=== PATIENT | male | born 1960 | race Caucasian/White ===

== ENCOUNTER 2017-09-29 15:39 | Observation (INO) | payer OTHER ==
[~2017-09-29] VITALS: Ht 170.2 cm; Wt 88.5 kg
[2017-09-29 16:38] LABS: Albumin 3.7 g/dL (3.4-5.0); Calcium 9.6 mg/dL (8.5-10.1)
[2017-09-29 16:40] LABS: Basophils # (auto) 0.1 uL; Bilirubin, Total 0.5 mg/dL (0.2-1.0); Eosinophils # (auto) 0.1 uL; Monocytes # (auto) 0.7 uL; Total Protein 7.9 g/dL (6.4-8.2)
[2017-09-29 16:42] LABS: Basophils % (auto) 0.7 % (0.0-2.0); Eosinophils % (auto) 1.5 % (0.0-7.0); Hematocrit 43.5 % (41.0-53.0); Lymphocytes # (auto) 2.3 uL; Lymphocytes % (auto) 23.3 % (10.0-50.0); Mean Corpuscular Hemoglobin 34.6 pg (28.0-32.0); Mean Corpuscular Hgb Conc. 34.5 g/dL (32.0-36.0); Mean Corpuscular Volume 100.5 fL (80.0-100.0); Monocytes % (auto) 7.3 % (0.0-12.0); Neutrophils # (auto) 6.5 uL; Neutrophils % (auto) 67.2 % (37.0-80.0); Nucleated Red Blood Cells % 0.2 %; Platelet Count (auto) 236 10^3/uL (140-450); Red Blood Cells 4.33 10^6/uL (4.5-5.90); Red Cell Distribution Width 13.5 % (11.8-14.3); White Blood Cell 9.7 10^3/uL (4.4-10.8)
[2017-09-29 17:08] LABS: Blood Alcohol < 3.0 mg/dL (0-5); Magnesium 1.8 mg/dL (1.6-2.6)
[2017-09-29] MEDS ORDERED: TETANUS-DIPTH-ACEL PERTUSSIS 0.5ML SYRG IM ONE (17:15)
[2017-09-29 18:08] LABS: INR 0.93 (0.9-1.15); Partial Thromboplastin Time 24.9 sec (22.64-33.71); Prothrombin Time 10.1 sec (9.37-12.3)
[2017-09-29] MEDS ORDERED: NICOTINE 21MG/24 HR TOPICAL PATCH TD ONE (18:15)
[2017-09-29 19:42] VITALS: BP 136/72
== END 2017-09-29 20:01 | disposition short-term general hospital (02) | DRG 64 ==
LOC: ER 15:43 → OVERFLOW 16:52 → ER 20:01
PROVIDERS: ADMIT Family Medicine; ATTEND Family Medicine
DX: I62.00 Nontraumatic subdural hemorrhage, unspecified (principal); G93.6 Cerebral edema; F10.20 Alcohol dependence, uncomplicated; I10 Essential (primary) hypertension; I73.9 Peripheral vascular disease, unspecified; W19.XXXA Unspecified fall, initial encounter; Y93.01 Activity, walking, marching and hiking; Y92.488 Other paved roadways as the place of occurrence of the external cause; Y99.8 Other external cause status; Z82.49 Family history of ischemic heart disease and other diseases of the circulatory system; Z87.891 Personal history of nicotine dependence; Z23 Encounter for immunization
CPT/HCPCS: 36415; 70450; 80053; 80320; 82962; 83735; 85025; 85610; 85730; 90471; 90715; 93005; 99291; G0378

== ENCOUNTER 2018-05-07 05:47 | Emergency (ER) | payer OTHER ==
[~2018-05-07] VITALS: Ht 170.2 cm; Wt 81.6 kg
[2018-05-07 06:14] VITALS: BP 139/88
== END 2018-05-07 06:58 | disposition home or self-care (01) ==
LOC: ER 05:49
DX: S83.8X1A Sprain of other specified parts of right knee, initial encounter (principal); E78.5 Hyperlipidemia, unspecified; I10 Essential (primary) hypertension; I25.2 Old myocardial infarction; Z87.891 Personal history of nicotine dependence; X50.1XXA Overexertion from prolonged static or awkward postures, initial encounter; Y93.53 Activity, golf; Y92.89 Other specified places as the place of occurrence of the external cause; Y99.8 Other external cause status
CPT/HCPCS: 73562

== ENCOUNTER 2025-08-08 17:44 | Inpatient (IN) | payer MEDICARE, OTHER ==
[~2025-08-08] VITALS: Ht 167.6 cm; Wt 82.2 kg
[2025-08-08 18:35] LABS: Base Excess -5.9 mmol/L (-2.0-3.0)
[2025-08-08 18:48] LABS: Hematocrit 51.9 % (41.0-53.0); Hemoglobin 17.5 g/dL (13.5-17.5); Mean Corpuscular Hemoglobin 31.6 pg (28.0-32.0); Mean Corpuscular Volume 94.0 fL (80.0-100.0); Nucleated Red Blood Cells % 0.1 %
[2025-08-08 19:06] LABS: Alanine Aminotransferase 18 U/L (7-40); Albumin 4.5 g/dL (3.2-4.8); Anion Gap 17 (5-15); BUN/Creatinine Ratio 33.5 (10.0-20.0); Bilirubin, Total 0.7 mg/dL (0.2-1.0); Calcium 9.9 mg/dL (8.7-10.4); Total Protein 7.3 g/dL (5.7-8.2)
[2025-08-08 19:10] LABS: Alkaline Phosphatase 138 U/L (46-116); Blood Urea Nitrogen 79 mg/dL (9-23); Carbon Dioxide 19 mmol/L (20-31); Chloride 96 mmol/L (98-107); Magnesium 2.9 mg/dL (1.6-2.6); Potassium 5.2 mmol/L (3.5-5.1); Sodium 132 mmol/L (136-145)
[2025-08-08 19:11] LABS: Glucose 650 mg/dL (74-106)
[2025-08-08] MEDS ORDERED: DEXTROSE (50%) 50ML SYRG IV PRN ×2 (19:30→23:30)
--- NOTE | 2025-08-08 19:55 | ED.PDOC ---
History of present illness HPI Comments HPI: 65 year old male presents to the ED with a chief complaint of hyperglycemia onset today. Patient went to urgent care this morning due to experiencing blurred vision, increased thirst, dry mouth, weakness, for the past 4 days. Blood glucose was checked at urgent care was over 700. He was given IV insulin, 2 NS bolus, blood glucose did not improve. Patient has a past medical history of hypertension and hyperlipidemia, has not taken medication for past few years. Prior to today, he was not aware he had diabetes. Denies fever, chills, headache, nausea, vomiting, diarrhea, chest pain, shortness of breath, dysuria, hematuria. No other symptoms or modifying factors present at this time. Initial Vitals BP: 118/72 HR: 110 RR: 16 O2 Sat: 96% Temp: 98.4 F Past Medical history: HTN, HLD, CA, Past Surgical history: Cardiac stent Medications: Denies Social History: Denies smoking, ETOH, and drug use. Allergies: italo Wilson: Blurry vision, generalized weakness, dry mouth, HPI: Poor Historian. REVIEW OF SYSTEMS: CONSTITUTIONAL: Denies acute: fever, diaphoresis, chills, HEAD: Denies acute: headache, photophobia Eyes: Denies acute: Double vision, vision loss, eye pain, eye discharge. EARS: Denies acute: tinnitus, hearing loss, ear discharge, ear pain, THROAT: Denies acute: sore throat, swelling, difficulty swallowing , pain with swallowing, change in voice. NECK: Denies acute: neck pain, neck swelling, stiff neck. HEART: Denies acute : chest pain, palpitations, LUNGS: Denies acute: SOB, wheezing, cough, hemoptysis ABDOMEN: Denies acute: abdominal pain, Nausea, Vomiting, diarrhea, melena , hematemesis, hematochezia SKIN: Denies acute: rash, redness, lesions, itchiness. EXTREMITIES: Denies acute: calf pain, numbness, tingling, weakness, denies pain in extremity. Denies acute: Low back pain. Neuro: Denies acute: focal neurological deficit, motor or sensory focal neurological deficit, tremors, seizure like activity, confusion, dizziness, change in mental status, loss of bowel or bladder function, cauda equina like symptoms. : Denies acute: dysuria, hematuria, flank pain, increase in urinary frequency. PSYCH: Denies acute: hallucination, suicidal ideation, homicidal ideation. PHYSICAL EXAM: General: ----mild----acute distress, awake and alert. Head: normocephalic, atraumatic. No raccoon's eyes, no rajput sign. Neck: supple, trachea is midline, no swelling. Throat: Normal phonation. Dry oral mucosa Eyes:, no erythema, no purulent discharge, no proptosis, no icterus. Heart: regular rate, regular rhythm, no significant murmur appreciated. Lungs: no apparent respiratory distress, Able to speak in full sentences. No wheezing, no rhonchi, no crackles. No stridors Clear to auscultation bilaterally. Abdomen: non tender to palpation, non distended, soft, no guarding, no rebound, + bowel sounds. Neuro: Awake, Alert, oriented to name, self, situation, follows commands GCS=15. Speech is normal. Skin: no petechia, no purpura, no cyanosis, non-pale, not jaundice. Lower extremities: --no - Pitting edema no deformity, no focal swelling, no calf TTP. Makes eye contact. moves all four extremities. Face: no apparent facial droop. ED COURSE: DISCLAIMER: This medical document was created using an electronic medical record system with voice recognition software and computerized dictation system. Although this document has been carefully reviewed, there might still be some phonetic and typographical errors. Occasional wrong-word or "sound-alike" substitutions may have occurred due to the inherent limitations of voice recognition software. These areas are purely typographical due to imperfections of the software programs and do not reflect any compromise in the patient's medical care. Please read the chart carefully and recognize, using context, where these substitutions have occurred. Chief Complaint: Hyperglycemia Time Seen by MD: 19:40 Primary Care Provider: Iram SOUZA History of present illness: Medications, Allergies Allergies: Coded Allergies: NO KNOWN ALLERGIES (Unverified , 09/29/17) Home Meds Active Scripts Lancets (Freestyle Lancets) Lancets Mis, EA XX ACHS, #120 Prov:REJI MEDINA MD 08/10/25 [facility] [place]. Devices (Blood Pressure Monitor) Monitor Kit, EA XX DAILY, #1 Prov:REJI MEDINA MD 08/10/25 Blood Glucose Monitoring Suppl (Blood Glucose Monitoring W/Device) 1 Kit Kit, KIT XX ACHS, #1 Prov:REJI MEDINA MD 08/10/25 Losartan Potassium (Losartan Potassium) 25 Mg Tab, 25 MG PO BID, #90 TAB Prov:REJI MEDINA MD 08/10/25 Insulin Regular (Human) (Novolin R Flexpen) 100 Unit/Ml Inj, 10 UNIT IJ AC, #10 INJ Prov:REJI MEDINA MD 08/10/25 Insulin Glargine (Lantus Solostar) 100 Unit/Ml Inj, 20 UNIT SC QAM, #10 INJ Prov:REJI MEDINA MD 08/10/25 Information Source: Patient, Emergency Med Personnel Mode of Arrival: Ambulatory Timing: Days Duration: Since onset Prehospital treatment: IVF Past Medical History PAST MEDICAL HISTORY: High Lipids, HTN, CA, PAD Surgical History: PTCA Family History Family History: No family hx of HTN Social History Smoker: Quit Greater Than 1 Year, Cigarettes Alcohol: Heavy Drugs: Denies Drug Use Lives In: Home Was a procedure done? Was a procedure done?: No Differential Diagnosis (DM) Differential Diagnosis: Appendicitis, Bowel Obstruction, Cholecystitis, Dehydration, Diabetic Coma, DKA, Electrolyte Abnormality, Encephalopathy, Gastritis, Gastroenteritis, Hepatitis, Hyperglycemia, Hyperosmolar State, Hypoglycemia, Pancreatitis, Pyelonephritis, UTI X-Ray, Labs, Meds, VS Vital Signs Date Time Temp Pulse Resp B/P (MAP) Pulse Ox O2 Delivery O2 Flow Rate FiO2 08/08/25 20:00 93 08/08/25 19:30 98.1 90 20 151/90 (110) 96 98.1 08/08/25 17:45 98.4 110 16 118/72 96 98.4 Lab Test 08/08/25 20:31 08/08/25 18:27 08/08/25 18:25 08/08/25 17:53 Range/Units POC Glucose > 600 *H > 600 *H 70-106 mg/dl Blood Gas Specimen Type Arterial Blood Gas Sample Site Left radial Blood Gas Patient Temperature 37.0 Arterial Blood Date Drawn [id number] Arterial Blood pH 7.355 7.350-7.450 Arterial Blood Partial Pressure CO2 33.7 L 35.0-48.0 mmHg Arterial Blood Partial Pressure O2 79.1 L 83.0-108.0 mmHg Arterial Blood HCO3 18.4 L 21.0-28.0 mmol/L Arterial Blood Oxygen Saturation 95.4 94.0-98.0 % Arterial Blood Base Excess -5.9 L -2.0-3.0 mmol/L Arterial Blood Oxyhemoglobin 93.8 L 94.0-98.0 % Arterial Blood Carboxyhemoglobin 1.0 0.5-1.5 % Arterial Blood Methemoglobin 0.7 0.0-1.5 % Arterial Blood Deoxyhemoglobin 4.5 0.0-5.0 % Timoteo Test Yes Blood Gas Total Hemoglobin 17.90 H 13.5-17.5 g/dL Blood Gas Modality Room air FiO2 % 21.0 White Blood Count 10.3 4.4-10.8 10^3/uL Red Blood Count 5.52 4.5-5.90 10^6/uL Hemoglobin 17.5 13.5-17.5 g/dL Hematocrit 51.9 41.0-53.0 % Mean Corpuscular Volume 94.0 80.0-100.0 fL Mean Corpuscular Hemoglobin 31.6 28.0-32.0 pg Mean Corpuscular Hemoglobin Concent 33.6 32.0-36.0 g/dL Red Cell Distribution Width 13.5 11.8-14.3 % Platelet Count 164 140-450 10^3/uL Mean Platelet Volume 11.6 H 6.9-10.8 fL Neutrophils (%) (Auto) 70.9 37.0-80.0 % Lymphocytes (%) (Auto) 20.6 10.0-50.0 % Monocytes (%) (Auto) 7.0 0.0-12.0 % Eosinophils (%) (Auto) 0.5 0.0-7.0 % Basophils (%) (Auto) 1.0 0.0-2.0 % Neutrophils # (Auto) 7.3 1.6-8.6 10 ^3/uL Lymphocytes # (Auto) 2.1 0.4-5.4 10 ^3/uL Monocytes # (Auto) 0.7 0-1.3 10 ^3/uL Eosinophils # (Auto) 0 0-0.8 10 ^3/uL Basophils # (Auto) 0.1 0-0.2 10 ^3/uL Nucleated Red Blood Cells 0.1 % Platelet Estimate Adequate Clumped Platelets None Sodium Level 132 L 136-145 mmol/L Potassium Level 5.2 H 3.5-5.1 mmol/L Chloride Level 96 L 98-107 mmol/L Carbon Dioxide Level 19 L 20-31 mmol/L Anion Gap 17 H 5-15 Blood Urea Nitrogen 79 H 9-23 mg/dL Creatinine 2.36 H 0.700-1.30 mg/dL Glomerular Filtration Rate Calc 30 >90 mL/min BUN/Creatinine Ratio 33.5 H 10.0-20.0 Serum Glucose 650 *H 74-106 mg/dL Hemoglobin A1c > 14.0 H <5.7 % A1C Serum Osmolality 351 H 278-298 mOsm/kg Lactic Acid Level 1.9 0.4-2.0 mmol/L Calcium Level 9.9 8.7-10.4 mg/dL Phosphorus Level 5.0 2.4-5.1 mg/dL Magnesium Level 2.9 H 1.6-2.6 mg/dL Total Bilirubin 0.7 0.2-1.0 mg/dL Aspartate Amino Transferase (AST) 14 13-40 U/L Alanine Aminotransferase (ALT) 18 7-40 U/L Alkaline Phosphatase 138 H 46-116 U/L Troponin I High Sensitivity 32 </=54 ng/L Total Protein 7.3 5.7-8.2 g/dL Albumin 4.5 3.2-4.8 g/dL Beta-Hydroxybutyric Acid 4.020 H < 0.4 mmol/L Test 08/08/25 17:52 Range/Units POC Glucose > 600 *H 70-106 mg/dl Time of 1ST Reevaluation: 20:10 Reevaluation 1ST: Unchanged Patient Education/Counseling: Diagnosis, Treatment Family Education/Counseling: No Family Present Comments MDM: patient presented with the above HPI.----hyperglycemia--workup was initiated. patient was found with the above mentioned diagnosis. the following medications were ordered: please refer to order lists of meds and tests obtained by myself Dr. Gregory. Patient ED course and VS have been stabilized. Patient has been reassessed in the ED and remained in a stable condition. RADIOLOGY: I have reviewed all the radiological reports ordered by myself that were available at the time of disposition. EKG: I have reviewed the initial EKG and interpreted it in the absence of cardiology formal read. Pertinent incidental findings were discussed with the patient and/or family. Patient/family voices understanding and is agreeable with plan. Patient has been observed in the ED adequate length of time to insure improvement/stability. Escalation of care considered: Consideration of escalation to observation or admission DKA protocol was initiated. Patient was ADMITTED to the medicine team for further evaluation and treatment of their presentation. All the reports of any imaging studies that were ordered by myself were reviewed by myself. Departure 1 Departure Time of Disposition: 19:44 Impression: Primary Impression: DKA (diabetic ketoacidosis) Disposition: ADMITTED INPATIENT Admit to: ICU Condition: Critical e-Prescriptions Lancets (Freestyle Lancets) Lancets Mis EA XX ACHS, #120 Prov: REJI MEDINA MD 08/10/25 [facility] [place]. Devices (Blood Pressure Monitor) Monitor Kit EA XX DAILY, #1 Prov: REJI MEDINA MD 08/10/25 Blood Glucose Monitoring Suppl (Blood Glucose Monitoring W/Device) 1 Kit Kit KIT XX ACHS, #1 Prov: REJI MEDINA MD 08/10/25 Losartan Potassium (Losartan Potassium) 25 Mg Tab 25 MG PO BID, #90 TAB Prov: REJI MEDINA MD 08/10/25 Insulin Regular (Human) (Novolin R Flexpen) 100 Unit/Ml Inj 10 UNIT IJ AC, #10 INJ Prov: REJI MEDINA MD 08/10/25 Insulin Glargine (Lantus Solostar) 100 Unit/Ml Inj 20 UNIT SC QAM, #10 INJ Prov: REJI MEDINA MD 08/10/25 Discharged With: Self Critical Care Note Critical Care Time?: Yes (45 min-critical care time only) Critical care comment: Due to a high probability of clinically significant, life threatening deterioration, the patient required my highest level of preparedness to intervene emergently and I personally spent this critical care time directly and personally managing the patient. This critical care time included obtaining a history; examining the patient; pulse oximetry; ordering and review of studies; arranging urgent treatment with development of a management plan; evaluation of patient's response to treatment; frequent reassessment; and, discussions with other providers. This critical care time was performed to assess and manage the high probability of imminent, life-threatening deterioration that could result in multi-organ failure. It was exclusive of separately billable procedures and treating other patients and teaching time. Please see my other sections and the rest of the note for further information on patient assessment and treatment. I personally scribed for LEVON GREGORY DO ([email or web address]) on 08/08/25 at 19:55. Electronically submitted by [place] Ngo ([email or web address]). LEVON GREGORY DO Aug 08, 2025 19:55
[2025-08-08] MEDS: ACCU-CHEK COMFORT CURVE STRIP VI SCH (20:32)
[2025-08-08] MEDS: INSULIN DRIP 100 UNIT/100ML 100 ML IV SCH ×2 (20:33→23:30)
[2025-08-08] MEDS: SODIUM CHLORIDE 0.9% 1,000 ML IV SCH ×2 (20:38→22:45)
[2025-08-08] MEDS ORDERED: ACETAMINOPHEN 325 MG TAB PO PRN (21:00)
[2025-08-08] MEDS ORDERED: MELATONIN 5 MG TAB PO PRN (21:00)
[2025-08-08] MEDS ORDERED: D5W/SOD CHLO 0.9% 1,000 ML IV SCH (21:00)
--- NOTE | 2025-08-08 21:48 | DVHHP2 ---
Admitting Diagnosis: DKA, ALEJANDRA History of Present Illness History Source: Patient Exam Limitations: No limitations HPI Mr. Jasen Killian is a 65 year old male with a history of Hypertension, Hyperlipidemia , [place] with cardiac stent who presents with a chief complaint of hyperglycemia onset today. Patient went to urgent care this morning due to experiencing blurred vision, increased thirst, dry mouth, weakness, for the past 4 days. Blood glucose was checked at urgent care was over 700. He was given IV insulin, 2 NS bolus, blood glucose did not improve. Prior to today, he was not aware he had diabetes. Denies fever, chills, headache, nausea, vomiting, diarrhea, chest pain, shortness of breath, dysuria, hematuria. No other symptoms or modifying factors present at this time. Past Medical History Cardiac: HTN, [place] (with cardiac stent), Hyperlipidemia Pulmonary: No pertinent Hx Central Nervous System: No pertinent Hx GI: No pertinent Hx Hemotology/Oncology: No pertinent Hx Hepatobiliary: No pertinent Hx Psychiatric: No pertinent Hx Musculoskeletal: No pertinent Hx Rheumotologic: No pertinent Hx Infectious Disease: No peritnent Hx ENT: No pertinent Hx Renal/: No pertinent Hx Endocrine: No pertinent Hx Dermatology: No pertinent Hx Smoker: 1 pack per day Alocohol: None (quit x 2 years ago) Drugs: None Lives with: With family Domestic Violence: Neg Review of Systems Constitutional: No symptom reported Ears, Nose, & Throat: No symptom reported Eyes: No symptom reported Pulmonary/Respiratory: No symptom reported Cardiovascular: No symptom reported Gastrointestinal: No symptom reported Genitourinary: No symptom reported Musculoskeletal: No symptom reported Skin: No symptom reported Psychiatric: No symptom reported Endocrine: No symptom reported Hemotologic/Lymphatic: No symptom reported H&P Exam Vital Signs Vital Signs Date Time Temp Pulse Resp B/P (MAP) Pulse Ox O2 Delivery O2 Flow Rate FiO2 08/08/25 20:00 93 08/08/25 17:45 98.4 16 118/72 96 98.4 General Appeara: Well developed, Well nourished Head Exam: Normal inspection Neck Exam: Normal inspection, Non-tender, Normal alignment Eye Exam: bilateral eye Normal inspection, bilateral eye PERRL, bilateral eye EOMI Ear Exam: bilateral ear Auricle normal Nasal Exam: Normal inspection Mouth: Normal Inspection Pulmonary/Respiratory: Normal inspection, Normal breath sounds, Chest non- tender, Lungs clear Cardiovascular/Chest: Normal inspection, Regular rate, Normal Rhythm Peripheral Pulses: 2+ dorsalis pedis (R), 2+ dorsalis pedis (L), 2+ Radial (R), 2+ Radial (L) Abdominal Exam: Normal bowel sounds, Soft VISUAL MERCHANDISE MANAGER Exam: Normal hearing, Normal speech, PERRL Neuro/Mental St: Alert, Oriented Appearance: Appropriate insight, Disheveled Eye contact/ Speech: Cooperative, Good eye contact Thoughts/Psych: Normal thought pattern Skin Exam: Normal inspection, Normal color, Warm/dry SEPSIS Sepsis Screen Date sepsis recognized/suspect: Aug 08, 2025 Time Sepsis recognized/suspect: 1750 Recent Procedure: No On Antibiotic Therapy: No Respiratory Rate >20: No Heart Rate >90: Yes Temp<36 C (96.8 F) or >38.3 C: No SBP <90 or MAP <65 mmHG: No New Acute Mental Status Change: No Is the patient on CPAP, BIPAP,: No Physician Orders Rail Car Repairer (08/08/25 ) Urinalysis (08/08/25 18:01) Abg W/ Co-Ox (08/08/25 18:01) Insulin Drip Protocol (08/08/25 ) Sodium Chloride 0.9% (08/08/25 19:30) Dextrose 50% Syringe (08/08/25 19:30) Glucose Blood (Accu-Chek Comfort Curve T (08/08/25 19:30) Basic Metabolic Panel (08/09/25 01:18) Basic Metabolic Panel (08/09/25 07:18) Basic Metabolic Panel (08/09/25 13:18) Neurological Assessment (08/08/25 19:18) Vs/Hemodynamics .PER UNIT PROTOCOL (08/08/25 19:18) Admit (08/08/25 20:57) Accucheck (08/08/25 21:00) Accucheck (08/08/25 22:00) Accucheck (08/08/25 23:00) Accucheck (08/09/25 00:00) Accucheck (08/09/25 01:00) Accucheck (08/09/25 02:00) Accucheck (08/09/25 03:00) Accucheck (08/09/25 04:00) Accucheck (08/09/25 05:00) Accucheck (08/09/25 06:00) Accucheck (08/09/25 07:00) Accucheck (08/09/25 08:00) Accucheck (08/09/25 09:00) Accucheck (08/09/25 10:00) Accucheck (08/09/25 11:00) Accucheck (08/09/25 12:00) Accucheck (08/09/25 13:00) Accucheck (08/09/25 14:00) Accucheck (08/09/25 15:00) Accucheck (08/09/25 16:00) Accucheck (08/09/25 17:00) Accucheck (08/09/25 18:00) Accucheck (08/09/25 19:00) Accucheck (08/09/25 20:00) Accucheck (08/09/25 21:00) Accucheck (08/09/25 22:00) Accucheck (08/09/25 23:00) Accucheck (08/10/25 00:00) Accucheck (08/10/25 01:00) Accucheck (08/10/25 02:00) Consistent Carb(Ccho)Diabetes (08/09/25 Breakfast) Full Code (08/08/25 20:57) Basic Metabolic Panel (08/08/25 22:00) Basic Metabolic Panel (08/09/25 02:00) Basic Metabolic Panel (08/09/25 06:00) Basic Metabolic Panel (08/09/25 10:00) Basic Metabolic Panel (08/09/25 14:00) Basic Metabolic Panel (08/09/25 18:00) Basic Metabolic Panel (08/09/25 22:00) Basic Metabolic Panel (08/10/25 02:00) Basic Metabolic Panel (08/10/25 06:00) Basic Metabolic Panel (08/10/25 10:00) Magnesium (08/08/25 22:00) Magnesium (08/09/25 02:00) Magnesium (08/09/25 06:00) Magnesium (08/09/25 10:00) Magnesium (08/09/25 14:00) Magnesium (08/09/25 18:00) Magnesium (08/09/25 22:00) Magnesium (08/10/25 02:00) Magnesium (08/10/25 06:00) Magnesium (08/10/25 10:00) Phosphorus (08/08/25 22:00) Phosphorus (08/09/25 02:00) Phosphorus (08/09/25 06:00) Phosphorus (08/09/25 10:00) Phosphorus (08/09/25 14:00) Phosphorus (08/09/25 18:00) Phosphorus (08/09/25 22:00) Phosphorus (08/10/25 02:00) Phosphorus (08/10/25 06:00) Phosphorus (08/10/25 10:00) Stat Ekg For Chest Pain (08/08/25 20:57) Notify Of Changes From Base (08/08/25 20:57) Coating Mixer For 24 Hours (08/08/25 20:57) Emergency Dysrhythmia Protocol (08/08/25 20:57) Rhythm Strips Once Every Shift (08/08/25 20:57) Oxygen By Nasal Cannula (08/08/25 20:57) Sodium Chloride 0.9% (08/08/25 21:00) Acetaminophen Tablet (Tylenol Tablet) (08/08/25 21:00) Famotidine Tablet (Pepcid Tablet) (08/08/25 22:00) Melatonin (Melatonin) (08/08/25 21:00) Enoxaparin Sodium (Lovenox) (08/09/25 10:00) Insulin R (Human) (Insulin R) (08/09/25 07:00) *[facility] (08/08/25 21:27) Kidney (08/08/25:27) Vital Signs Date Time Temp Pulse Resp B/P (MAP) Pulse Ox O2 Delivery O2 Flow Rate FiO2 08/08/25 20:00 93 08/08/25 17:45 98.4 110 16 118/72 96 98.4 Laboratory Tests Test 08/08/25 18:25 Lactic Acid Level 1.9 mmol/L (0.4-2.0) White Blood Count 10.3 10^3/uL (4.4-10.8) Medications Medications Dose Ordered Sig/Melva Route Start Time Stop Time Status Last Admin Dose Admin Diagnostic Test (Pha) 1 strip Q90MIN 08/08/25 19:30 08/08/25 21:03 1 STRIP Insulin Human (Reg)/Sodium Chloride 100 ml @ 0.5 mls/hr Q24H IV 08/08/25 19:30 08/08/25 21:08 DC 08/08/25 20:33 6 MLS/HR Sodium Chloride 1,000 ml @ 500 mls/hr Q2H IV 08/08/25 19:30 08/08/25 23:29 08/08/25 20:38 500 MLS/HR Labs/Xrays Labs Test 08/08/25 20:31 08/08/25 18:27 08/08/25 18:25 Range/Units POC Glucose > 600 *H 70-106 mg/dl Blood Gas Specimen Type Arterial Blood Gas Sample Site Left radial Blood Gas Patient Temperature 37.0 Arterial Blood Date Drawn [id number] Arterial Blood pH 7.355 7.350-7.450 Arterial Blood Partial Pressure CO2 33.7 L 35.0-48.0 mmHg Arterial Blood Partial Pressure O2 79.1 L 83.0-108.0 mmHg Arterial Blood HCO3 18.4 L 21.0-28.0 mmol/L Arterial Blood Oxygen Saturation 95.4 94.0-98.0 % Arterial Blood Base Excess -5.9 L -2.0-3.0 mmol/L Arterial Blood Oxyhemoglobin 93.8 L 94.0-98.0 % Arterial Blood Carboxyhemoglobin 1.0 0.5-1.5 % Arterial Blood Methemoglobin 0.7 0.0-1.5 % Arterial Blood Deoxyhemoglobin 4.5 0.0-5.0 % Timoteo Test Yes Blood Gas Total Hemoglobin 17.90 H 13.5-17.5 g/dL Blood Gas Modality Room air FiO2 % 21.0 White Blood Count 10.3 4.4-10.8 10^3/uL Red Blood Count 5.52 4.5-5.90 10^6/uL Hemoglobin 17.5 13.5-17.5 g/dL Hematocrit 51.9 41.0-53.0 % Mean Corpuscular Volume 94.0 80.0-100.0 fL Mean Corpuscular Hemoglobin 31.6 28.0-32.0 pg Mean Corpuscular Hemoglobin Concent 33.6 32.0-36.0 g/dL Red Cell Distribution Width 13.5 11.8-14.3 % Platelet Count 164 140-450 10^3/uL Mean Platelet Volume 11.6 H 6.9-10.8 fL Neutrophils (%) (Auto) 70.9 37.0-80.0 % Lymphocytes (%) (Auto) 20.6 10.0-50.0 % Monocytes (%) (Auto) 7.0 0.0-12.0 % Eosinophils (%) (Auto) 0.5 0.0-7.0 % Basophils (%) (Auto) 1.0 0.0-2.0 % Neutrophils # (Auto) 7.3 1.6-8.6 10 ^3/uL Lymphocytes # (Auto) 2.1 0.4-5.4 10 ^3/uL Monocytes # (Auto) 0.7 0-1.3 10 ^3/uL Eosinophils # (Auto) 0 0-0.8 10 ^3/uL Basophils # (Auto) 0.1 0-0.2 10 ^3/uL Nucleated Red Blood Cells 0.1 % Platelet Estimate Adequate Clumped Platelets None Sodium Level 132 L 136-145 mmol/L Potassium Level 5.2 H 3.5-5.1 mmol/L Chloride Level 96 L 98-107 mmol/L Carbon Dioxide Level 19 L 20-31 mmol/L Anion Gap 17 H 5-15 Blood Urea Nitrogen 79 H 9-23 mg/dL Creatinine 2.36 H 0.700-1.30 mg/dL Glomerular Filtration Rate Calc 30 >90 mL/min BUN/Creatinine Ratio 33.5 H 10.0-20.0 Serum Glucose 650 *H 74-106 mg/dL Serum Osmolality 351 H 278-298 mOsm/kg Lactic Acid Level 1.9 0.4-2.0 mmol/L Calcium Level 9.9 8.7-10.4 mg/dL Phosphorus Level 5.0 2.4-5.1 mg/dL Magnesium Level 2.9 H 1.6-2.6 mg/dL Total Bilirubin 0.7 0.2-1.0 mg/dL Aspartate Amino Transferase (AST) 14 13-40 U/L Alanine Aminotransferase (ALT) 18 7-40 U/L Alkaline Phosphatase 138 H 46-116 U/L Troponin I High Sensitivity 32 </=54 ng/L Total Protein 7.3 5.7-8.2 g/dL Albumin 4.5 3.2-4.8 g/dL Beta-Hydroxybutyric Acid 4.020 H < 0.4 mmol/L Assessment/Plan Problem List: (1) DKA (diabetic ketoacidosis) (2) ALEJANDRA (acute kidney injury) Plan This is a 65 yo male with known history of Hypertension, hyperlipidemia, [place] with cardiac stent who presents to hospital sent from Urgent Care with hyperglycemia. Patient found to have 1. DKA 2. ALEJANDRA 3. Hypertension 4. Hyperlipidemia 5. [place] with cardiac stent Plan Admit to ICU Nephrology consultation, Renal Ultrasound Insulin drip per DKA protocol IV fluids per protocol BMP, Phos, MG q 4hours Monitor electrolytes replenish as needed Dietary consultation /diabetes education Smoking cessation education Discussed all above with patient who verbalizes agreement and understanding of care plan. All questions were answered. Discussed with supervising MD. Plan discussed with: Patient, Other Code Visit Code Visit Total Time (mins): 45 Additional Comments Additional Comments Additional Comments Patient's chart is reviewed and discussed with the nurse practitioner. Patient is seen evaluated and admitted by PROJECT MANAGEMENT ANALYST cook boat. I agree with the her evaluation, documentation, assessment and care plan as outlined. Patient is seen and evaluated by me in person this afternoon and discussed care plan with the patient and nurse at bedside. RANDY RODRIGUEZ Aug 08, 2025 21:48 REJI MEDINA MD Aug 09, 2025 13:50
[2025-08-08 21:50] VITALS: PULSE 78; RESP 18; O2SAT 94
[2025-08-08 22:34] LABS: Chloride 99 mmol/L (98-107); Potassium 4.5 mmol/L (3.5-5.1)
[2025-08-08 22:35] LABS: Anion Gap 11 (5-15); Calcium 9.1 mg/dL (8.7-10.4); Carbon Dioxide 25 mmol/L (20-31)
[2025-08-08 22:40] LABS: BUN/Creatinine Ratio 33.2 (10.0-20.0)
[2025-08-08 22:41] LABS: Magnesium 2.5 mg/dL (1.6-2.6)
[2025-08-08 22:42] LABS: Sodium 135 mmol/L (136-145)
[2025-08-08 22:43] LABS: Blood Urea Nitrogen 62 mg/dL (9-23)
[2025-08-08 22:44] LABS: Glucose 559 mg/dL (74-106)
[2025-08-08] MEDS: FAMOTIDINE 20 MG TAB PO SCH (22:45)
[2025-08-08] MEDS: InsuLIN REG 1unit/0.01ml Soln (100units/ml) ONE (23:07)
[2025-08-08] MEDS ORDERED: INSULIN DRIP 100 UNIT/100ML 100 ML IV SCH ×2 (23:30)
[2025-08-08] MEDS ORDERED: SODIUM CHLORIDE 0.9% 1,000 ML IV SCH (23:30)
[2025-08-09] VITALS (12 sets, daily range): BP systolic 100–161; BP diastolic 39–87; PULSE 67–90; RESP 14–18; TEMP 97.7–98.6; O2SAT 94–97
[2025-08-09] MEDS ORDERED: ACCU-CHEK COMFORT CURVE STRIP VI SCH
[2025-08-09 00:18] LABS: Urine Budding Yeast OCCASIONAL /hpf (None Seen); Urine Protein, UAD Negative (Negative)
--- NOTE | 2025-08-09 01:15 | DVH ---
INDICATION: juani TECHNIQUE: Multiple real-time sonographic images of the kidneys and bladder were obtained. COMPARISON: None FINDINGS: The right kidney measures 11.2 cm in length, which is normal in size. There is normal echogenicity of the right kidney. No hydronephrosis. The left kidney measures 10.1 cm in length, which is normal in size. There is increased echogenicity. There is no hydronephrosis. 1.0 cm left renal cyst. No intraluminal mass is seen in the bladder. The urinary bladder is distended. Prior to voiding the bladder volume measures 306.2 cc. IMPRESSION: 1. Increased left renal echogenicity may reflect medical renal disease in the appropriate clinical setting. 2. Distended urinary bladder.
[2025-08-09] MEDS ORDERED: SODIUM CHLORIDE 0.9% 1,000 ML IV SCH (01:30)
[2025-08-09 02:18] LABS: Chloride 105 mmol/L (98-107); Potassium 4.1 mmol/L (3.5-5.1); Sodium 139 mmol/L (136-145)
[2025-08-09 02:19] LABS: Anion Gap 9 (5-15); Calcium 9.1 mg/dL (8.7-10.4); Carbon Dioxide 25 mmol/L (20-31)
[2025-08-09 02:24] LABS: BUN/Creatinine Ratio 35.8 (10.0-20.0)
[2025-08-09 02:25] LABS: Magnesium 2.4 mg/dL (1.6-2.6)
[2025-08-09 03:02] LABS: Blood Urea Nitrogen 54 mg/dL (9-23); Glucose 269 mg/dL (74-106)
[2025-08-09 06:08] LABS: Anion Gap 8 (5-15); Carbon Dioxide 27 mmol/L (20-31); Potassium 4.0 mmol/L (3.5-5.1); Sodium 142 mmol/L (136-145)
[2025-08-09 06:09] LABS: Calcium 9.1 mg/dL (8.7-10.4)
[2025-08-09 06:13] LABS: Glucose 80 mg/dL (74-106)
[2025-08-09 06:14] LABS: BUN/Creatinine Ratio 30.7 (10.0-20.0); Magnesium 2.4 mg/dL (1.6-2.6)
[2025-08-09 06:20] LABS: Blood Urea Nitrogen 42 mg/dL (9-23); Chloride 107 mmol/L (98-107)
[2025-08-09] MEDS ORDERED: InsuLIN REG 1unit/0.01ml Soln (100units/ml) SC SCH ×2 (07:00→22:00)
[2025-08-09] MEDS ORDERED: DEXTROSE (50%) 50ML SYRG IV PRN ×2 (10:15→21:15)
[2025-08-09] MEDS: ENOXAPARIN SOD 40 MG/0.4 ML SYRINGE SC SCH (10:30)
--- NOTE | 2025-08-09 10:46 | DVHINCON2 ---
Date of service: Aug 09, 2025 Referring Physician Fannie Lewis, nurse practitioner Reason for Consultation Acute kidney injury History of Present Illness Patient is a 65-year-old male with past medical history significant for: HTN, HLD, and DC who has no primary care physician is admitted for generalized weakness increasing thirst and polyuria. On admission patient found to have diabetic ketoacidosis kidney injury Past Medical History Past Medical history: HTN, HLD, DC, Past Surgical History Past Surgical history: Cardiac stent Allergies: Coded Allergies: NO KNOWN ALLERGIES (Unverified , 09/29/17) Current Medications Current Medications Medications (Trade) Dose Ordered Sig/Melva Route PRN Reason Start Time Stop Time Status Last Admin Sodium Chloride 1,000 ml @ 500 mls/hr Q2H IV 08/08/25 19:30 08/08/25 23:29 DC 08/08/25 23:09 Sodium Chloride 1,000 ml @ 250 mls/hr Q4H IV 08/08/25 23:30 08/09/25 01:29 Cancel Sodium Chloride 1,000 ml @ 150 mls/hr Q6H40M IV 08/09/25 01:30 08/08/25 21:24 DC Insulin Human (Reg)/Sodium Chloride 100 ml @ 0.5 mls/hr Q24H IV 08/08/25 19:30 08/08/25 21:08 DC 08/08/25 20:33 Dextrose 50 ml UD PRN IV SEE CURRENT ALGORITHM or SCALE 08/08/25 19:30 Cancel Diagnostic Test (Pha) (Accu-Chek Comfort Curve T) 1 strip Q90MIN 08/08/25 19:30 08/09/25 10:59 DC 08/09/25 09:30 Sodium Chloride 1,000 ml @ 150 mls/hr Q6H40M IV 08/08/25 21:00 08/09/25 10:59 DC 08/09/25 03:40 Dextrose/Sodium Chloride 1,000 ml @ 150 mls/hr Q6H40M IV 08/08/25 21:00 08/08/25 21:36 DC Acetaminophen (Tylenol Tablet) 650 mg Q6HPRN PRN PO PAIN SCALE 1-3 OR TEMP>100.4 08/08/25 21:00 Famotidine (Pepcid Tablet) 20 mg DAILY PO 08/08/25 22:00 08/09/25 10:30 Melatonin (Melatonin) 5 mg ONCE@2200 PRN PO FOR INSOMNIA 08/08/25 21:00 Enoxaparin Sodium (Lovenox) 40 mg DAILY SC 08/09/25 10:00 08/09/25 10:30 Insulin Human Regular (InsuLIN R) AC SC 08/09/25 07:00 08/08/25 23:44 DC Insulin Human (Reg)/Sodium Chloride 100 ml @ 0.5 mls/hr Q24H IV 08/08/25 23:30 08/09/25 10:59 DC 08/09/25 03:11 Dextrose 50 ml UD PRN IV SEE CURRENT ALGORITHM or SCALE 08/08/25 23:30 UNV Diagnostic Test (Pha) (Accu-Chek Comfort Curve T) 1 strip Q90MIN 08/09/25 00:00 UNV Insulin Human (Reg)/Sodium Chloride 100 ml @ 0.5 mls/hr Q24H IV 08/08/25 23:30 UNV Insulin Human (Reg)/Sodium Chloride 100 ml @ 1 mls/hr Q24H IV 08/08/25 23:30 08/08/25 23:44 DC Diagnostic Test (Pha) (Accu-Chek Comfort Curve T) 1 strip ACHS 08/09/25 11:30 Insulin Human Regular (InsuLIN R) ACHS SC 08/09/25 11:30 Dextrose 50 ml UD PRN IV Blood Sugar LESS THAN 60 08/09/25 10:15 Review of Systems All 12 item review of systems reviewed with the patient nonsignificant except what is mentioned in the history of present illness H&P Exam Vital Signs/I&O Vital Sign Date Time Temp Pulse Resp B/P (MAP) Pulse Ox O2 Delivery O2 Flow Rate FiO2 08/09/25 10:30 88 08/09/25 10:30 18 94 Room Air* 0 21 08/09/25 10:00 147/78 (101) 08/09/25 08:00 98.5 98.5 Intake and Output 08/08/25 08/09/25 19:00 07:00 Intake Total 839 ml Balance 839 ml Intake IV Total 839 ml Physical Exam Patient is awake alert Lungs clear to auscultation bilaterally Cardiac exam regular rate and rhythm GI soft nontender normal Extremities no clubbing cyanosis or edema Neuro nonfocal Labs/Diagnostic Data Labs/Diagnostic Data Laboratory Tests Test 08/09/25 05:50 08/09/25 05:34 08/09/25 01:57 08/09/25 01:09 Range/Units Sodium Level 142 139 136-145 mmol/L Potassium Level 4.0 4.1 3.5-5.1 mmol/L Chloride Level 107 105 98-107 mmol/L Carbon Dioxide Level 27 25 20-31 mmol/L Anion Gap 8 9 5-15 Blood Urea Nitrogen 42 #H 54 H 9-23 mg/dL Creatinine 1.37 H 1.51 H 0.700-1.30 mg/dL Glomerular Filtration Rate Calc 57 51 >90 mL/min BUN/Creatinine Ratio 30.7 H 35.8 H 10.0-20.0 Serum Glucose 80 # 269 #H 74-106 mg/dL Calcium Level 9.1 9.1 8.7-10.4 mg/dL Phosphorus Level 2.8 2.3 L 2.4-5.1 mg/dL Magnesium Level 2.4 2.4 1.6-2.6 mg/dL POC Glucose 95 358 H 70-106 mg/dl Test 08/08/25 23:59 08/08/25 23:32 08/08/25 22:05 08/08/25 20:31 Range/Units Urine Color Light-yellow Yellow Urine Clarity Clear Clear Urine pH 5.0 5.0-9.0 Urine Specific [place] 1.026 1.001-1.035 Urine Protein Negative Negative Urine Ketones 1+ H Negative Urine Blood Negative Negative /uL Urine Nitrite Negative Negative Urine Bilirubin Negative Negative Urine Urobilinogen Normal Negative mg/dL Urine Leukocyte Esterase Negative Negative /uL Urine RBC 1 0 - 3 /hpf Urine Microscopic WBC < 1 0-3 /HPF Urine Squamous Epithelial Cells None seen <5 /hpf Urine Bacteria None seen None Seen /hpf Urine Mucus Few None Seen Urine Yeast (Budding) Occasional None Seen /hpf Urine Glucose 4+ H Normal mg/dL POC Glucose 438 *H > 600 *H 70-106 mg/dl Sodium Level 135 L 136-145 mmol/L Potassium Level 4.5 3.5-5.1 mmol/L Chloride Level 99 98-107 mmol/L Carbon Dioxide Level 25 20-31 mmol/L Anion Gap 11 5-15 Blood Urea Nitrogen 62 #H 9-23 mg/dL Creatinine 1.87 H 0.700-1.30 mg/dL Glomerular Filtration Rate Calc 39 >90 mL/min BUN/Creatinine Ratio 33.2 H 10.0-20.0 Serum Glucose 559 *H 74-106 mg/dL Calcium Level 9.1 8.7-10.4 mg/dL Phosphorus Level 3.5 2.4-5.1 mg/dL Magnesium Level 2.5 1.6-2.6 mg/dL Test 08/08/25 18:27 08/08/25 18:25 08/08/25 17:53 08/08/25 17:52 Range/Units Blood Gas Specimen Type Arterial Blood Gas Sample Site Left radial Blood Gas Patient Temperature 37.0 Arterial Blood Date Drawn [id number] Arterial Blood pH 7.355 7.350-7.450 Arterial Blood Partial Pressure CO2 33.7 L 35.0-48.0 mmHg Arterial Blood Partial Pressure O2 79.1 L 83.0-108.0 mmHg Arterial Blood HCO3 18.4 L 21.0-28.0 mmol/L Arterial Blood Oxygen Saturation 95.4 94.0-98.0 % Arterial Blood Base Excess -5.9 L -2.0-3.0 mmol/L Arterial Blood Oxyhemoglobin 93.8 L 94.0-98.0 % Arterial Blood Carboxyhemoglobin 1.0 0.5-1.5 % Arterial Blood Methemoglobin 0.7 0.0-1.5 % Arterial Blood Deoxyhemoglobin 4.5 0.0-5.0 % Timoteo Test Yes Blood Gas Total Hemoglobin 17.90 H 13.5-17.5 g/dL Blood Gas Modality Room air FiO2 % 21.0 White Blood Count 10.3 4.4-10.8 10^3/uL Red Blood Count 5.52 4.5-5.90 10^6/uL Hemoglobin 17.5 13.5-17.5 g/dL Hematocrit 51.9 41.0-53.0 % Mean Corpuscular Volume 94.0 80.0-100.0 fL Mean Corpuscular Hemoglobin 31.6 28.0-32.0 pg Mean Corpuscular Hemoglobin Concent 33.6 32.0-36.0 g/dL Red Cell Distribution Width 13.5 11.8-14.3 % Platelet Count 164 140-450 10^3/uL Mean Platelet Volume 11.6 H 6.9-10.8 fL Neutrophils (%) (Auto) 70.9 37.0-80.0 % Lymphocytes (%) (Auto) 20.6 10.0-50.0 % Monocytes (%) (Auto) 7.0 0.0-12.0 % Eosinophils (%) (Auto) 0.5 0.0-7.0 % Basophils (%) (Auto) 1.0 0.0-2.0 % Neutrophils # (Auto) 7.3 1.6-8.6 10 ^3/uL Lymphocytes # (Auto) 2.1 0.4-5.4 10 ^3/uL Monocytes # (Auto) 0.7 0-1.3 10 ^3/uL Eosinophils # (Auto) 0 0-0.8 10 ^3/uL Basophils # (Auto) 0.1 0-0.2 10 ^3/uL Nucleated Red Blood Cells 0.1 % Platelet Estimate Adequate Clumped Platelets None Sodium Level 132 L 136-145 mmol/L Potassium Level 5.2 H 3.5-5.1 mmol/L Chloride Level 96 L 98-107 mmol/L Carbon Dioxide Level 19 L 20-31 mmol/L Anion Gap 17 H 5-15 Blood Urea Nitrogen 79 H 9-23 mg/dL Creatinine 2.36 H 0.700-1.30 mg/dL Glomerular Filtration Rate Calc 30 >90 mL/min BUN/Creatinine Ratio 33.5 H 10.0-20.0 Serum Glucose 650 *H 74-106 mg/dL Hemoglobin A1c > 14.0 H <5.7 % A1C Serum Osmolality 351 H 278-298 mOsm/kg Lactic Acid Level 1.9 0.4-2.0 mmol/L Calcium Level 9.9 8.7-10.4 mg/dL Phosphorus Level 5.0 2.4-5.1 mg/dL Magnesium Level 2.9 H 1.6-2.6 mg/dL Total Bilirubin 0.7 0.2-1.0 mg/dL Aspartate Amino Transferase (AST) 14 13-40 U/L Alanine Aminotransferase (ALT) 18 7-40 U/L Alkaline Phosphatase 138 H 46-116 U/L Troponin I High Sensitivity 32 </=54 ng/L Total Protein 7.3 5.7-8.2 g/dL Albumin 4.5 3.2-4.8 g/dL Beta-Hydroxybutyric Acid 4.020 H < 0.4 mmol/L POC Glucose > 600 *H > 600 *H 70-106 mg/dl Assessment Acute kidney injury superimposed Chronic Kidney Disease secondary hemodynamic mediated Diabetic ketoacidosis Uncontrolled diabetes mellitus Hyperglycemia Dehydration Hypertension Recommendations Closely monitor fluid and electrolytes Avoid nephrotoxic medications Strict I&Os Check urine electrolytes and protein excretion Check kidney ultrasound IV fluid hydration Insulin sliding scale Blood pressure control We will continue to follow Patient seen and examined by myself in the ER. I discussed my plan of care with the patient and the primary nurse at the bedside I would like to thank Fannie for the consult, will follow up Plan discussed with: Patient MILES WILLIAM MD Aug 09, 2025 10:46
[2025-08-09] MEDS: ACCU-CHEK COMFORT CURVE STRIP VI SCH ×2 (12:10→21:30)
[2025-08-09] MEDS: InsuLIN REG 1unit/0.01ml Soln (100units/ml) SC SCH ×3 (12:30→21:29)
[2025-08-09 14:05] LABS: Anion Gap 11 (5-15); Carbon Dioxide 21 mmol/L (20-31); Chloride 105 mmol/L (98-107); Potassium 4.6 mmol/L (3.5-5.1); Sodium 137 mmol/L (136-145)
[2025-08-09 14:06] LABS: Calcium 8.8 mg/dL (8.7-10.4)
[2025-08-09 14:11] LABS: BUN/Creatinine Ratio 26.9 (10.0-20.0)
[2025-08-09 14:12] LABS: Blood Urea Nitrogen 36 mg/dL (9-23); Glucose 346 mg/dL (74-106)
[2025-08-09] MEDS: SODIUM CHLORIDE 0.9% 1,000 ML IV SCH (14:48)
[2025-08-09] MEDS: INSULIN LANTUS (GLARGINE) 1 /0.01ml (100units/ml) SC ONE (15:11)
[2025-08-09 17:03] LABS: Protein, Urine 16.8 mg/dL (1-14)
[2025-08-10] VITALS (8 sets, daily range): BP systolic 119–162; BP diastolic 67–99; PULSE 70–112; RESP 16–20; TEMP 96.1–97.9; O2SAT 94–97
[2025-08-10] MEDS: hydrALAZINE HCL 20 MG/ML VL IV PRN (04:11)
[2025-08-10] MEDS: InsuLIN REG 1unit/0.01ml Soln (100units/ml) SC SCH (06:04)
[2025-08-10 07:29] LABS: Anion Gap 11 (5-15); Calcium 8.8 mg/dL (8.7-10.4); Carbon Dioxide 22 mmol/L (20-31); Potassium 4.0 mmol/L (3.5-5.1); Sodium 141 mmol/L (136-145)
[2025-08-10 07:35] LABS: BUN/Creatinine Ratio 21.6 (10.0-20.0)
[2025-08-10 07:36] LABS: Magnesium 2.1 mg/dL (1.6-2.6)
[2025-08-10 07:38] LABS: Blood Urea Nitrogen 25 mg/dL (9-23); Chloride 108 mmol/L (98-107); Glucose 208 mg/dL (74-106)
[2025-08-10] MEDS: INSULIN LANTUS (GLARGINE) 1 /0.01ml (100units/ml) SC SCH (09:09)
--- NOTE | 2025-08-10 12:04 | DVHPN2 ---
Progress Note Date Seen: Aug 10, 2025 Medical Necessity Reason Pt with a Central, PICC or Fol: No Subjective Patient reports: No new complaints Other Systems: Patient seen and examined by myself today in follow-up Objective vital signs Vital Sign Date Time Temp Pulse Resp B/P (MAP) Pulse Ox O2 Delivery O2 Flow Rate FiO2 08/10/25 09:00 96.2 80 18 153/91 (111) 97 96.2 08/10/25 08:10 Room Air* 0 21 Total Intake and Output 08/09/25 08/09/25 08/10/25 15:00 23:00 07:00 Intake Total 150 ml 500 ml 400 ml Output Total 1475 ml Balance -1325 ml 500 ml 400 ml medications Current Medications Medications Dose Ordered Sig/Melva Route Start Time Stop Time Status Last Admin Dose Admin Sodium Chloride 1,000 ml @ 250 mls/hr Q4H IV 08/08/25 23:30 08/09/25 01:29 Cancel Dextrose 50 ml UD PRN IV 08/08/25 19:30 Cancel Acetaminophen 650 mg Q6HPRN PRN PO 08/08/25 21:00 Famotidine 20 mg DAILY PO 08/08/25 22:00 08/10/25 09:07 20 MG Melatonin 5 mg ONCE@2200 PRN PO 08/08/25 21:00 Enoxaparin Sodium 40 mg DAILY SC 08/09/25 10:00 08/10/25 09:08 40 MG Dextrose 50 ml UD PRN IV 08/08/25 23:30 UNV Diagnostic Test (Pha) 1 strip Q90MIN 08/09/25 00:00 UNV Insulin Human (Reg)/Sodium Chloride 100 ml @ 0.5 mls/hr Q24H IV 08/08/25 23:30 UNV Dextrose 50 ml UD PRN IV 08/09/25 10:15 Cancel Insulin Glargine 15 units DAILY@1000 SC 08/10/25 10:00 08/10/25 09:09 15 UNITS Sodium Chloride 1,000 ml @ 75 mls/hr [id number] IV 08/09/25 14:00 08/10/25 04:11 75 MLS/HR Diagnostic Test (Pha) 1 strip ACHS 08/09/25 22:00 08/10/25 11:11 1 STRIP Insulin Human Regular AC SC 08/10/25 07:00 08/10/25 11:17 20 UNITS Insulin Human Regular HS SC 08/09/25 22:00 08/09/25 21:29 10 UNITS Dextrose 50 ml UD PRN IV 08/09/25 21:15 Hydralazine HCl 10 mg Q4HPRN PRN IV 08/10/25 04:00 08/10/25 04:11 10 MG Examination: LUNGS:Normal, CVS:Normal, MSK:Normal laboratory and microbiology Laboratory Tests 08/10/25 05:29 08/08/25 18:25 Test 08/10/25 05:29 Range/Units Serum Glucose 208 #H 74-106 mg/dL Problem List/Assessment/Plan Problem List/Assessment/Plan Acute kidney injury superimposed Chronic Kidney Disease secondary hemodynamic mediated Diabetic ketoacidosis Uncontrolled diabetes mellitus Hyperglycemia Dehydration Hypertension Recommendations Kidney function is improving Increased urine output Strict I&Os kidney ultrasound reported echogenic kidney no obstruction IV fluid hydration Insulin sliding scale Blood pressure control We will continue to follow Plan discussed with: Patient MILES WILLIAM MD Aug 10, 2025 12:04
[2025-08-10] MEDS ORDERED: LOS25T PO (14:06)
[2025-08-10] MEDS ORDERED: INSU100I45 IJ (14:06)
[2025-08-10] MEDS ORDERED: BLOO1KIT54 XX (14:06)
[2025-08-10] MEDS ORDERED: INSUINJ37 SC (14:06)
[2025-08-10] MEDS ORDERED: LANC-347 XX (14:06)
[2025-08-10] MEDS ORDERED: BLOO-200 XX (14:06)
--- NOTE | 2025-08-10 14:08 | DVHDS2 ---
Discharge Summary Date of Admission Aug 08, 2025 at 20:57 Date of Discharge: Aug 10, 2025 Labs/Diagnostic Data: Laboratory Results Test 08/10/25 11:10 08/10/25 05:29 08/09/25 05:50 08/08/25 23:59 POC Glucose 352 mg/dl (70-106) Sodium Level 141 mmol/L (136-145) Potassium Level 4.0 mmol/L (3.5-5.1) Chloride Level 108 mmol/L (98-107) Carbon Dioxide Level 22 mmol/L (20-31) Anion Gap 11 (5-15) Blood Urea Nitrogen 25 mg/dL (9-23) Creatinine 1.16 mg/dL (0.700-1.30) Glomerular Filtration Rate Calc 70 mL/min (>90) BUN/Creatinine Ratio 21.6 (10.0-20.0) Serum Glucose 208 mg/dL (74-106) Calcium Level 8.8 mg/dL (8.7-10.4) Magnesium Level 2.1 mg/dL (1.6-2.6) Phosphorus Level 2.8 mg/dL (2.4-5.1) Urine Color Light-yellow (Yellow) Urine Clarity Clear (Clear) Urine pH 5.0 (5.0-9.0) Urine Specific [place] 1.026 (1.001-1.035) Urine Protein Negative (Negative) Urine Ketones 1+ (Negative) Urine Blood Negative /uL (Negative) Urine Nitrite Negative (Negative) Urine Bilirubin Negative (Negative) Urine Urobilinogen Normal mg/dL (Negative) Urine Leukocyte Esterase Negative /uL (Negative) Urine RBC 1 /hpf (0 - 3) Urine Microscopic WBC < 1 /HPF (0-3) Urine Squamous Epithelial Cells None seen /hpf (<5) Urine Bacteria None seen /hpf (None Seen) Urine Mucus Few (None Seen) Urine Yeast (Budding) Occasional /hpf (None Urine Creatinine 38.25 mg/dL (30.0-125.0) Urine Protein/Creatinine Ratio 0.44 Urine Sodium 24 mmol/L (40-220) Urine Glucose 4+ mg/dL (Normal) Urine Total Protein 16.8 mg/dL (1-14) Test 08/08/25 18:27 08/08/25 18:25 Blood Gas Specimen Type Arterial Blood Gas Sample Site Left radial Blood Gas Patient Temperature 37.0 Arterial Blood Date Drawn [id number] Arterial Blood pH 7.355 (7.350-7.450) Arterial Blood Partial Pressure CO2 33.7 mmHg (35.0-48.0) Arterial Blood Partial Pressure O2 79.1 mmHg (83.0-108.0) Arterial Blood HCO3 18.4 mmol/L (21.0-28.0) Arterial Blood Oxygen Saturation 95.4 % (94.0-98.0) Arterial Blood Base Excess -5.9 mmol/L (-2.0-3.0) Arterial Blood Oxyhemoglobin 93.8 % (94.0-98.0) Arterial Blood Carboxyhemoglobin 1.0 % (0.5-1.5) Arterial Blood Methemoglobin 0.7 % (0.0-1.5) Arterial Blood Deoxyhemoglobin 4.5 % (0.0-5.0) Timoteo Test Yes Blood Gas Total Hemoglobin 17.90 g/dL (13.5-17.5) Blood Gas Modality Room air FiO2 % 21.0 White Blood Count 10.3 10^3/uL (4.4-10.8) Red Blood Count 5.52 10^6/uL (4.5-5.90) Hemoglobin 17.5 g/dL (13.5-17.5) Hematocrit 51.9 % (41.0-53.0) Mean Corpuscular Volume 94.0 fL (80.0-100.0) Mean Corpuscular Hemoglobin 31.6 pg (28.0-32.0) Mean Corpuscular Hemoglobin Concent 33.6 g/dL (32.0-36.0) Red Cell Distribution Width 13.5 % (11.8-14.3) Platelet Count 164 10^3/uL (140-450) Mean Platelet Volume 11.6 fL (6.9-10.8) Neutrophils (%) (Auto) 70.9 % (37.0-80.0) Lymphocytes (%) (Auto) 20.6 % (10.0-50.0) Monocytes (%) (Auto) 7.0 % (0.0-12.0) Eosinophils (%) (Auto) 0.5 % (0.0-7.0) Basophils (%) (Auto) 1.0 % (0.0-2.0) Neutrophils # (Auto) 7.3 10 ^3/uL (1.6-8.6) Lymphocytes # (Auto) 2.1 10 ^3/uL (0.4-5.4) Monocytes # (Auto) 0.7 10 ^3/uL (0-1.3) Eosinophils # (Auto) 0 10 ^3/uL (0-0.8) Basophils # (Auto) 0.1 10 ^3/uL (0-0.2) Nucleated Red Blood Cells 0.1 % Platelet Estimate Adequate Clumped Platelets None Hemoglobin A1c > 14.0 % A1C (<5.7) Serum Osmolality 351 mOsm/kg (278-298) Lactic Acid Level 1.9 mmol/L (0.4-2.0) Total Bilirubin 0.7 mg/dL (0.2-1.0) Aspartate Amino Transferase (AST) 14 U/L (13-40) Alanine Aminotransferase (ALT) 18 U/L (7-40) Alkaline Phosphatase 138 U/L (46-116) Troponin I High Sensitivity 32 ng/L (</=54) Total Protein 7.3 g/dL (5.7-8.2) Albumin 4.5 g/dL (3.2-4.8) Beta-Hydroxybutyric Acid 4.020 mmol/L (< 0.4) Other Laboratory Tests 08/10/25 05:29 08/08/25 18:25 Brief Hx & Hospital Course: Mr. Jasen Killian is a 65 year old male with a history of Hypertension, Hyperlipidemia , [place] with cardiac stent who presents with a chief complaint of hyperglycemia onset today. Patient went to urgent care this morning due to experiencing blurred vision, increased thirst, dry mouth, weakness, for the past 4 days. Blood glucose was checked at urgent care was over 700. He was given IV insulin, 2 NS bolus, blood glucose did not improve. Prior to today, he was not aware he had diabetes. Denies fever, chills, headache, nausea, vomiting, diarrhea, chest pain, shortness of breath, dysuria, hematuria. No other symptoms or modifying factors present at this time. He is admitted and started on IV insulin drip and blood sugars have improved. Subsequently transitioned to long-acting as well as short-acting insulin. Patient underwent counseling education regarding a new onset diabetes and need for insulin at home. He is advised to keep his blood sugars between 70 and 130. While in the hospital his blood sugars are in the 2-300 range. Patient's insulin is adjusted and advised him to follow up with the PCP to increase insulin regimen based on his sugars and his diet at home. Patient underwent diabetic education while in the hospital. Otherwise patient is clinically stable back to baseline normal status feeling better. Therefore it is felt he could be safely discharged home. I have talked with the patient regarding his hospital diagnosis, high blood sugars, discharge medications, discharge instructions and follow-up plan of care. He has verbalized understanding of this and agree with the care plan as outlined. Consults/Reason for consult Assessment Acute kidney injury superimposed Chronic Kidney Disease secondary hemodynamic mediated Diabetic ketoacidosis Uncontrolled diabetes mellitus Hyperglycemia Dehydration Hypertension Recommendations Closely monitor fluid and electrolytes Avoid nephrotoxic medications Strict I&Os Check urine electrolytes and protein excretion Check kidney ultrasound IV fluid hydration Insulin sliding scale Blood pressure control We will continue to follow Patient seen and examined by myself in the ER. I discussed my plan of care with the patient and the primary nurse at the bedside I would like to thank Fannie for the consult, will follow up Plan discussed with: Patient MILES WILLIAM MD Aug 09, 2025 10:46 Condition at Discharge: Stable Final Diagnosis/Problems List New onset diabetes mellitus type 2 poorly controlled, hypertension Discharge Disposition: Home with Health Services Discharge Instruct/Medications Diet: Consistent carbohydrate, Cardiac 2g Na,low cholest Activity: No Restrictions, As Tolerated Follow Up/Referral: Primary care physician next week to adjust her insulin for new onset diabetes management and blood pressure management Medications: Take insulin and blood pressure medication as prescribed Scheduled Insulin Glargine (Lantus Solostar), 20 UNIT SC QAM Insulin Regular (Human) (Novolin R Flexpen), 10 UNIT IJ AC Losartan Potassium (Losartan Potassium), 25 MG PO BID Durable Medical Equipment Blood Glucose Monitoring Suppl (Blood Glucose Monitoring W/Device), KIT XX ACHS, (DME) Lancets (Freestyle Lancets), EA XX ACHS, (DME) Misc. Devices (Blood Pressure Monitor), EA XX DAILY, (DME) Discharge Statement: "Patient was advised to return to the ER or call 911 if any headaches, dizziness, shortness of breath, chest pain, abdominal pain, bleeding, fevers, or worsening of medical condition. Patient was counseled about treatment plan, medications, possible side effects, patientverbalized understanding. All questions were answered to the best of my ability. This discharge took greater then 30 minutes in planning, reviewing documentation, counseling the patient, and discussing with other team members." ASSESSMENT ASSESSMENT Assessment New onset diabetes mellitus type 2 poorly controlled, hypertension REJI MEDINA MD Aug 10, 2025 14:08
[2025-08-10] MEDS: InsuLIN REG 1unit/0.01ml Soln (100units/ml) SC ONE (21:26)
[2025-08-11 01:00] VITALS: BP 131/77; PULSE 77; RESP 16; TEMP 98; O2SAT 96
[2025-08-11 05:00] VITALS: BP 160/82; PULSE 74; RESP 16; TEMP 98.1; O2SAT 95
[2025-08-11 08:00] VITALS: PULSE 79
[2025-08-11 09:00] VITALS: BP 149/76; PULSE 72; RESP 18; TEMP 98.6; O2SAT 96
[2025-08-11 09:29] VITALS: BP 150/82; PULSE 74; RESP 18; TEMP 98.3; O2SAT 98
[2025-08-11 12:26] VITALS: BP 166/97; PULSE 79; RESP 18; TEMP 98; O2SAT 96
== END 2025-08-11 16:38 | disposition home or self-care (01) | DRG 637 ==
LOC: ER 17:44 → OVERFLOW 20:57 → TELE-WESTW 08-09 16:41
PROVIDERS: ADMIT Nurse Practitioner Family; ATTEND Nurse Practitioner Family
DX: E11.10 Type 2 diabetes mellitus with ketoacidosis without coma (principal); N17.0 Acute kidney failure with tubular necrosis; E11.22 Type 2 diabetes mellitus with diabetic chronic kidney disease; I12.9 Hypertensive chronic kidney disease with stage 1 through stage 4 chronic kidney disease, or unspecified chronic kidney disease; N18.9 Chronic kidney disease, unspecified; E78.5 Hyperlipidemia, unspecified; E86.0 Dehydration; Z71.6 Tobacco abuse counseling; Z95.5 Presence of coronary angioplasty implant and graft; I25.2 Old myocardial infarction
CPT/HCPCS: 36415; 36600; 76775; 80048; 80053; 81001; 82010; 82570; 82805; 82962; 83036; 83605; 83735; 83930; 84100; 84156; 84300; 84484; 85025; 96365; G0378; J1815